=== PATIENT | female | born 1955 | race Caucasian/White ===

== ENCOUNTER → 2019-01-24 | Outpatient (CLI) | payer OTHER | END | disposition home or self-care (01) | LOC: US 07:30 | DX: R94.5 Abnormal results of liver function studies (principal) ==

== ENCOUNTER → 2019-07-26 | Outpatient (CLI) | payer OTHER ==
[2019-07-26 09:45] LABS: HEMATOCRIT 38.8 % (37.0-47.0); HEMOGLOBIN 12.6 g/dl (12.0-16.0); MEAN CELL VOLUME 105.1 fl (81.0-99.0); MEAN CORPUSCULAR HGB 34.1 pg (27.0-31.0); MEAN CORPUSCULAR HGB CONC 32.5 g/dl (33.0-37.0); MEAN PLATELET VOLUME 9.2 fl (9.6-12.3); RED BLOOD COUNT 3.69 10*6/uL (4.10-5.10); RED CELL DISTRI WIDTH 12.7 % (0-14.5); WHITE BLOOD COUNT 8.1 10*3/uL (4.8-10.8)
[2019-07-26 10:10] LABS: ALBUMIN 3.6 gm/dl (3.1-4.5); ALKALINE PHOSPHATASE 59 U/L (45-117); BUN 10 mg/dl (7-24); CHLORIDE 107 mmol/L (98-107); CHOLESTEROL 280 mg/dL (<200); CREATININE 1.02 mg/dL (0.55-1.02); GAMMA GLUTAMYL TRANSPEPTIDASE 10 U/L (5-55); HDL CHOLESTEROL 62 mg/dl (40-60); LDL CHOLESTEROL 183 mg/dL (9-159); SGOT/AST 17 IU/L (3-35); SGPT/ALT 13 U/L (12-78); SODIUM 141 mmol/L (136-145); TOTAL PROTEIN 7.1 gm/dL (6.4-8.2); TRIGLYCERIDES 176 mg/dl (<150); VLDL CHOLESTEROL 35 mg/dL (6-40)
== END | disposition home or self-care (01) ==
LOC: LAB 09:25
PROVIDERS: Family Medicine
DX: Z13.220 Encounter for screening for lipoid disorders (principal); E55.9 Vitamin D deficiency, unspecified; F41.1 Generalized anxiety disorder

== ENCOUNTER → 2023-07-01 | Outpatient (CLI) | payer MEDICARE | END | disposition home or self-care (01) | LOC: NM 07:54 | PROVIDERS: ATTEND Family Medicine | DX: R10.821 Right upper quadrant rebound abdominal tenderness (principal) ==

== ENCOUNTER 2024-04-26 10:24 | Emergency (ER) | payer MEDICARE ==
[~2024-04-26] VITALS: Ht 165.1 cm
[2024-04-26] MEDS ORDERED: CELEXA40 MG PO (10:37)
[2024-04-26] MEDS ORDERED: TRAZODONE50 MG PO (10:37)
[2024-04-26] MEDS ORDERED: Acetaminophen/Oxycodone 5 MG/325 MG TABLET PO ONE (10:55)
[2024-04-26] MEDS ORDERED: MELOXICAM15 MG PO (12:11)
== END 2024-04-26 12:19 | disposition home or self-care (01) ==
LOC: ED 10:24
DX: M25.512 Pain in left shoulder (principal); R07.81 Pleurodynia; M79.602 Pain in left arm; E78.5 Hyperlipidemia, unspecified; F17.200 Nicotine dependence, unspecified, uncomplicated; Z79.899 Other long term (current) drug therapy; W18.39XA Other fall on same level, initial encounter; Y93.89 Activity, other specified; Y92.89 Other specified places as the place of occurrence of the external cause; Y99.8 Other external cause status